=== PATIENT | female | born 1970 | race Caucasian/White ===

== ENCOUNTER 2019-05-07 23:05 | Emergency (ER) | payer OTHER ==
[~2019-05-07] VITALS: Ht 162.6 cm; Wt 63.5 kg
--- NOTE | ~2019-05-07 | EKG ---
[facility] [place] [address] ELECTROCARDIOGRAM REPORT Name: TAHIRA ORTIZMARIO TAVERA [id number] Admission: 05/07/19 Attend Phys: Discharge: 05/08/19 Date of : 70 Report #: [id number] THIS REPORT FOR: cc: Arsenio Frey Steven F. DO Epiphany, Epiphany MD ~ THIS REPORT FOR: //name// [facility] ED Test Date: 2019-05-07 Test Time: 23:08:49 Pat Name: LEANN ORTIZ Department: Room: Gender: F Operations And Maintenance Technician: Debbie : 1970 Requested By: Jose Manuel Ortez Order Number: [id number] MD: Measurements Intervals [place] Rate: 71 P: 44 MA: 147 QRS: 37 QRSD: 92 T: 56 QT: 394 QTc: 429 Interpretive Statements Sinus rhythm Borderline abnrm T, anterolateral leads Compared to ECG 01/11/2008 12:11:06 No significant changes [email or web address] By: [id number] Epiphany EpiphanyMD /EPI
[2019-05-07] MEDS ORDERED: LISINOPRIL-HCT1 EACH PO (23:31)
[2019-05-07] MEDS ORDERED: CELEXA 20 MG TA20 MG PO (23:31)
[2019-05-07 23:50] LABS: ABSOLUTE NEUTROPHILS 5.2 thou/uL (1.4-8.2); BASOPHILS 0.4 % (0.0-2.0); EOSINOPHILS 2.2 % (0.0-3.0); HEMATOCRIT 39.6 % (37.0-47.0); HEMOGLOBIN 13.3 gm/dL (12.0-15.0); MCH 29.5 pg (26.0-34.0); MCHC 33.6 g/dL (28.0-37.0); MCV 87.6 fL (80.0-100.0); MONOCYTES 5.5 % (1.0-8.0); PLATELET COUNT 342 thou/uL (150-400); POLYS 62.9 % (36.0-66.0); RBC 4.52 mil/uL (4.20-5.00); RDW 12.6 % (10.5-14.5); WBC 8.2 thou/uL (4.0-11.0)
[2019-05-07 23:59] LABS: ANION GAP 7 mmol/L (7-16); BUN 11 mg/dL (7-18); CALCIUM 8.6 mg/dL (8.5-10.1); CHLORIDE 103 mmol/L (98-107); CO2 31 mmol/L (21-32); CREATININE 0.6 mg/dL (0.6-1.0); GLUCOSE 87 mg/dL (74-106); SODIUM 141 mmol/L (136-145)
[2019-05-08 00:04] LABS: APTT 30.1 Seconds (24.5-32.8); PROTIME 10.7 Seconds (9.3-11.4)
[2019-05-08 00:10] LABS: ALBUMIN 3.7 g/dL (3.4-5.0); MAGNESIUM 2.1 mg/dL (1.8-2.4); SGOT 54 U/L (15-37); SGPT 41 U/L (30-65); TOTAL BILIRUBIN 0.3 mg/dL (<0.1-1.0); TOTAL PROTEIN 6.8 g/dL (6.4-8.2); TROPONIN-I <0.06 ng/mL (<0.06)
[2019-05-08] MEDS ORDERED: NITROGLYCERIN0.4 MG SUBLING (00:51)
[2019-05-08 01:25] VITALS: BP 121/81
== END 2019-05-08 01:25 | disposition home or self-care (01) ==
LOC: ER 23:05
PROVIDERS: Emergency Medicine
DX: E87.6 Hypokalemia (principal); R07.9 Chest pain, unspecified; E11.9 Type 2 diabetes mellitus without complications; Z90.49 Acquired absence of other specified parts of digestive tract; Z98.890 Other specified postprocedural states; Z88.8 Allergy status to other drugs, medicaments and biological substances

== ENCOUNTER → 2019-05-09 | Outpatient (CLI) | payer OTHER ==
[~2019-05-09] MED LIST: CELEXA 20 MG TA20 MG PO; LISINOPRIL-HCT1 EACH PO; NITROGLYCERIN0.4 MG SUBLING
== END ==
LOC: SJCVCIMAG 12:59
DX: R07.9 Chest pain, unspecified (principal); R55 Syncope and collapse; I10 Essential (primary) hypertension; E11.9 Type 2 diabetes mellitus without complications; E78.5 Hyperlipidemia, unspecified; E78.00 Pure hypercholesterolemia, unspecified; F32.0 Major depressive disorder, single episode, mild